=== PATIENT | female | born 2000 | race Caucasian/White ===

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

== ENCOUNTER 2019-06-30 11:03 | Day surgery (SDC) | payer BC ==
[~2019-06-30 11:03] MED LIST: Lactated Ringers 1,000 ML IV SCH
--- NOTE | 2019-06-30 11:46 | PCM.PREANE ---
Preanesthetic Assessment - Anesthesia/Transfusion/Family Hx Anesthesia History: Prior Anesthesia Without Reaction Family History of Anesthesia Reaction: No Transfusion History: No Prior Transfusion(s) Intubation History: Unknown - Review of Systems General: No Symptoms Pulmonary: No Symptoms Cardiovascular: No Symptoms Gastrointestinal: No Symptoms Neurological: No Symptoms Other: Reports: None - Physical Assessment Height: 5 ft 7 in Weight: 82.554 kg ASA Class: 2 Mental Status: Alert & Oriented x3 Airway Class: Mallampati = 1 Dentition: Reports: Normal Dentition Thyro-Mental Finger Breadths: 3 Mouth Opening Finger Breadths: 2 ROM/Head Extension: Full Lungs: Clear to Auscultation, Normal Respiratory Effort Cardiovascular: Regular Rate, Regular Rhythm - Allergies Allergies/Adverse Reactions: Allergies Allergy/AdvReac Type Severity Reaction Status Date / Time albuterol Allergy Agitation Verified 06/29/19 15:19 Penicillins Allergy Rash Verified 06/29/19 15:19 - Blood Blood Available: No - Anesthesia Plan Pre-Op Medication Ordered: None - Acknowledgements Anesthesia Type Planned: General Anesthesia Pt an Appropriate Candidate for the Planned Anesthesia: Yes Alternatives and Risks of Anesthesia Discussed w Pt/Guardian: Yes Pt/Guardian Understands and Agrees with Anesthesia Plan: Yes PreAnesthesia Questionnaire HEENT History: Reports: Other (See Below) Other HEENT History: top and bottom permanent dental retainers Cardiovascular History: Reports: None Respiratory History: Reports: None Gastrointestinal History: Reports: None Genitourinary History: Reports: None SHEET METAL INSULATOR History: Reports: Endometriosis Musculoskeletal History: Reports: Other (See Below) Other Musculoskeletal History: hx fx growth plate to elbow as a child Neurological History: Reports: Migraines Psychiatric History: Reports: None Endocrine/Metabolic History: Reports: None Hematologic History: Reports: None, Other (See Below) (h/o anemia) Immunologic History: Reports: None Oncologic (Cancer) History: Reports: None Dermatologic History: Reports: None - Infectious Disease History Infectious Disease History: Reports: Chicken Pox - Past Surgical History Head Surgeries/Procedures: Reports: None HEENT Surgical History: Reports: Tonsillectomy Cardiovascular Surgical History: Reports: None Respiratory Surgical History: Reports: None GI Surgical History: Reports: None Female Surgical History: Reports: Other (See Below) Other Female Surgeries/Procedures: laparoscopy in the past - 2014 Endocrine Surgical History: Reports: None Neurological Surgical History: Reports: None Musculoskeletal Surgical History: Reports: Other (See Below) (pinning rt. forarm fx.) Oncologic Surgical History: Reports: None Dermatological Surgical History: Reports: None - SUBSTANCE USE Smoking Status *Q: Former Smoker Tobacco Use Within Last Twelve Months: Cigarettes - HOME MEDS Home Medications: Home Meds . [No Known Home Meds] 06/29/19 [History] - CURRENT (IN HOUSE) MEDS Current Meds: Current Medications Lactated Ringer's (Ringers, Lactated) 1,000 mls @ 125 mls/hr IV ASDIRECTED RAHEEM
[2019-06-30] MEDS ORDERED: Propofol 200 MG/20 ML SDV ONE (13:16)
[2019-06-30] MEDS ORDERED: Rocuronium 100 MG/10 ML Syringe ONE (13:16)
[2019-06-30] MEDS ORDERED: Midazolam 1 MG/ML 2 ML SDV ONE (13:16)
[2019-06-30] MEDS ORDERED: Ondansetron 4 MG/2 ML SDV ONE (13:16)
[2019-06-30] MEDS ORDERED: fentaNYL 100 MCG/2 ML SDV ONE ×2 (13:16→14:10)
[2019-06-30] MEDS ORDERED: Lidocaine 2% 5 ML SDV ONE (13:16)
[2019-06-30] MEDS ORDERED: Methylene Blue 50 MG/10 ML Ampule ONE (13:21)
[2019-06-30] MEDS ORDERED: Bupivacaine 0.25% 10 ML SDV ONE (13:21)
[2019-06-30] MEDS ORDERED: Ketorolac 30 MG/ML SDV ONE (14:55)
[2019-06-30] MEDS ORDERED: Sugammadex Sodium 200 MG/2 ML VIAL ONE (15:00)
--- NOTE | 2019-06-30 15:16 | PCM.OPNOTE ---
- General Post-Op/Procedure Note Date of Surgery/Procedure: 06/30/19 Operative Procedure(s): operative laparoscopy, ablation of endometriosis, lysis of adhesions and chormopertubation Findings: dense and filmy adhesions of the left tube to the sigmoid colon. lateral to the left uterosacral ligament, there are two kirti-master's windows, inflammatory blegs and dark implants in posterior cul de sac, and along the right uterosacral ligament, small dark implants on ovaries. Bilateral tubes open. Pre Op Diagnosis: pelvic pain, endometriosis. Post-Op Diagnosis: Same Anesthesia Technique: General ET Tube Primary Surgeon: Brooke Chino Anesthesia Provider: Yue Zuniga Billet Shearer: Barrera Coronado Pathology: none Fluid Replacement, Intraop: 1,000 EBL in mLs: 20 Complications: None Known Condition: Good Free Text/Narrative:: Intake & Output 06/30/19 06/30/19 06/30/19 06:59 14:59 22:59 Output Total 100 Balance -100
[2019-06-30] MEDS: fentaNYL 100 MCG/2 ML SDV IVPUSH PRN ×4 (15:17→15:49)
[2019-06-30] MEDS ORDERED: HYDROmorphone 2 MG/ML Syringe IVPUSH ONE (15:21)
--- NOTE | 2019-06-30 16:04 | PCM.POSTAN ---
POST ANESTHESIA ASSESSMENT - MENTAL STATUS Mental Status: Alert, Oriented - VITAL SIGNS Vital Signs: Last Vital Signs Temp 36.7 C 06/30/19 15:13 Pulse 106 H 06/30/19 15:56 Resp 12 06/30/19 15:56 BP 116/96 H 06/30/19 15:56 Pulse Ox 94 L 06/30/19 15:56 - RESPIRATORY Respiratory Status: Respiratory Rate WNL, Airway Patent, O2 Saturation Stable - CARDIOVASCULAR CV Status: Pulse Rate WNL, Blood Pressure Stable - GASTROINTESTINAL GI Status: No Symptoms - PAIN Pain Score: 3 - POST OP HYDRATION Hydration Status: Adequate & Stable - OBSERVATIONS Free Text/Narrative:: no anesthesia problems
--- NOTE | 2019-06-30 16:31 | PCM48HPAN ---
Post Anesthesia Note - EVALUATION WITHIN 48HRS OF ANESTHETIC Vital Signs in Normal Range: Yes Patient Participated in Evaluation: Yes Respiratory Function Stable: Yes Airway Patent: Yes Cardiovascular Function Stable: Yes Hydration Status Stable: Yes Pain Control Satisfactory: Yes Nausea and Vomiting Control Satisfactory: Yes Mental Status Recovered: Yes Vital Signs: Last Vital Signs Temp 36.8 C 06/30/19 16:00 Pulse 93 06/30/19 16:15 Resp 15 06/30/19 16:15 BP 118/59 L 06/30/19 16:15 Pulse Ox 93 L 06/30/19 16:15 - COMMENTS/OBSERVATIONS Free Text/Narrative:: no anesthesia problems
--- NOTE | 2019-06-30 17:06 | OR ---
SURGEON: Brooke Chino M.D. DATE OF PROCEDURE: 06/30/2019 PREOPERATIVE DIAGNOSES: Endometriosis, pelvic pain. POSTOPERATIVE DIAGNOSES: Endometriosis, pelvic pain, pelvic adhesions. PROCEDURES: Operative laparoscopy, lysis of adhesions, ablation of endometriosis, chromopertubation. PRIMARY SURGEON: Brooke Chino MD. ANESTHESIA: General endotracheal. FLUIDS: 1000 mL of crystalloid. ESTIMATED BLOOD LOSS: 20 mL. FINDINGS: Normal-appearing uterus. The endometriosis appears to have advanced to a stage II to III with the left tube being ill-defined due to dense and filmy adhesions between the tube and the sigmoid colon and the pelvic sidewall. There are two Salom[place]-Masters windows lateral to the uterosacral ligament on the left, inflammatory blebs along the right uterosacral ligament, multiple endometriotic dark implants and inflammatory implants in the posterior cul-de-sac, adhesion between the right tube and pelvic sidewall, and small dark implants on the ovaries. COMPLICATIONS: None known. DISPOSITION: Stable to Recovery. BRIEF HISTORY: This is a 18-year-old female with a known history of endometriosis since age 13, diagnosed by biopsy at a laparoscopy. She has used Lupron, Depo-Provera, and hormonal suppression as well as nonsteroidals for treatment of her endometriosis, and she is having worsening pain, irregular bleeding, and presents for evaluation of endometriosis and with treatment as it has been 5 years since her last laparoscopy. In the future, she does desire fertility and would like an assessment of tubes at this time as well with chromopertubation. Risks of surgery were discussed including bleeding; infection; injury to bowel, bladder, blood vessels, ureters, or other organs; risk of thromboembolic event; and risk of anesthesia. Understanding all these risks, she does desire to proceed. DESCRIPTION OF PROCEDURE: With the patient in dorsal lithotomy position, under adequate general endotracheal anesthesia, the abdomen was prepped with chlorhexidine. The perineum and vagina were prepped with Betadine and draped in the usual fashion for vaginal surgery. The bladder was drained with a red Roebrtson catheter. SCDs were in place. An appropriate time-out was held. After the patient was appropriately draped, a bimanual examination was performed. The uterus was mobile, 8-week size. A speculum was placed in the vagina. The cervix was dilated to a 6 mm Hegar dilator. The ZUMI uterine manipulator was placed into the uterus. Preparation Plant Repairer's gloves were changed. Attention was then turned to the abdomen where a 5 mm vertical incision was made within the umbilicus. The anterior abdominal wall was elevated. Veress needle was inserted. Opening pressure was 4 mmHg. CO2 was insufflated to develop an adequate pneumoperitoneum of 13 mmHg. A 5 mm port was placed at the umbilicus. The camera was placed. The laparoscope was placed into the abdominal cavity. There was no evidence of any trauma from the port placement site. The pelvis was carefully inspected. The patient was placed in Trendelenburg positions. Two additional ports were placed, 2 cm medial and cephalad from the anterior superior iliac spine on the right and the left. Findings were as noted above. The left tube was noted to be densely adherent. Spreading the Harmonic Kunal tip, I was able to separate the dense adhesions into filmy adhesions that I was then able to lyse to release the fimbria of the left tube and also I used the Harmonic Kunal to release the left ovary from the pelvic sidewall. The Salomón- Masters window lateral to the left uterosacral ligament was near the ureter and therefore no intervention was performed. The uterosacral ligaments contained multiple inflammatory blebs and implants of endometriosis. These were treated with the ball tip of the Harmonic Kunal at a setting of 5. Also several implants in the posterior cul-de-sac were treated as well as on the posterior uterus. The implants on the two ovaries were also treated with the ball tip of the Harmonic. This being completed and additional adhesion being lysed between the right ovary and the pelvic sidewall, chromopertubation was performed with flow noted from bilateral tubes. This being completed, the pelvis was inspected and was hemostatic. The abdomen was desufflated and inspected under low pressure. After the abdomen was adequately desufflated, the ports were removed and the skin was closed with subcuticular suture of 4-0 Monocryl. The ZUMI uterine manipulator was removed from the vagina. Final sponge, needle, and instrument counts were reported as correct. There were no known complications. The patient was transferred to Recovery in good condition. KENYA / RAFAEL /[id number]
[2019-06-30 17:35] VITALS: BP 118/60; PULSE 87
== END 2019-06-30 17:15 | disposition home or self-care (01) ==
LOC: MW.SDS 11:03
PROVIDERS: ATTEND Obstetrics & Gynecology
DX: N80.3 Endometriosis of pelvic peritoneum (principal); N80.1 Endometriosis of ovary; N80.2 Endometriosis of fallopian tube; N73.6 Female pelvic peritoneal adhesions (postinfective); Z31.41 Encounter for fertility testing; G43.909 Migraine, unspecified, not intractable, without status migrainosus; Z87.891 Personal history of nicotine dependence; Z88.0 Allergy status to penicillin; Z88.8 Allergy status to other drugs, medicaments and biological substances
CPT/HCPCS: 36415; 58350; 58662; 84703; 85027; J1170; J1885; J2001; J2250; J2405; J2704; J3010; J3490; J7120; 00840

== ENCOUNTER 2020-10-12 16:07 | Inpatient (IN) | payer BC ==
[2020-10-12] MEDS ORDERED: Sodium Chloride 0.9% 10 ML Syringe FLUSH PRN (19:14)
[2020-10-12] MEDS ORDERED: Carboprost Tromethamine 250 MCG/1 ML Amp IM PRN (19:14)
[2020-10-12] MEDS ORDERED: Misoprostol 200 MCG Tab PO PRN (19:14)
[2020-10-12] MEDS ORDERED: Tranexamic Acid 1,000 MG in Sodium Chloride 0.9% 100 ML IV PRN (19:14)
[2020-10-12] MEDS ORDERED: Methylergonovine 0.2 MG/1 ML Amp IM PRN (19:14)
[2020-10-12] MEDS ORDERED: Sodium Chloride 0.9% 2.5 ML Syringe FLUSH PRN (19:14)
[2020-10-12] MEDS ORDERED: Lidocaine 1% 50 ML MDV INJECT PRN (19:14)
[2020-10-12] MEDS ORDERED: Nalbuphine 10 MG/1 ML Vial IVPUSH PRN (19:14)
[2020-10-12] MEDS ORDERED: Sodium Chloride 0.9% 10 ML SDV IV PRN (19:14)
[2020-10-12] MEDS ORDERED: Butorphanol 1 MG/ML SDV IVPUSH PRN (19:14)
[2020-10-12] MEDS ORDERED: Water For Irrigation,Sterile 1,000 ML Container IRR PRN (19:14)
[2020-10-12] MEDS ORDERED: Oxytocin/0.9 % Sodium Chloride 30 UNIT/500 ML BAG IV SCH ×2 (19:15→19:30)
[2020-10-12] MEDS ORDERED: Terbutaline 1 MG/ML SDV SUBCUT PRN (19:16)
[2020-10-12] MEDS ORDERED: Misoprostol 25 MCG (1/4 of 100 MCG) Tab VAG PRN (19:16)
[2020-10-12] MEDS: Lactated Ringers 1,000 ML IV SCH (20:29)
[2020-10-12] MEDS: Misoprostol 25 MCG (1/4 of 100 MCG) Tab VAG PRN (20:35)
[2020-10-12] MEDS ORDERED: Oxytocin/0.9 % Sodium Chloride 30 UNIT/500 ML BAG ONE (23:52)
[2020-10-13] MEDS ORDERED: Omeprazole 20 MG Cap.CR PO ONE (00:15)
[2020-10-13] MEDS: Misoprostol 25 MCG (1/4 of 100 MCG) Tab VAG PRN (00:40)
[2020-10-13] MEDS ORDERED: Ondansetron 4 MG/2 ML SDV IVPUSH PRN (02:00)
[2020-10-13] MEDS ORDERED: fentaNYL 100 MCG/2 ML SDV ONE (05:09)
[2020-10-13] MEDS ORDERED: Ropivacaine HCl/PF 100 ML ONE ×2 (05:09→13:01)
[2020-10-13] MEDS: Lactated Ringers 1,000 ML IV SCH ×2 (05:43→09:30)
--- NOTE | 2020-10-13 05:49 | PCM.PREANE ---
Preanesthetic Assessment - Anesthesia/Transfusion/Family Hx Anesthesia History: Prior Anesthesia Without Reaction Family History of Anesthesia Reaction: No Transfusion History: No Prior Transfusion(s) Intubation History: Unknown - Physical Assessment NPO Status Date: 10/13/20 NPO Status Time: 00:05 Height: 1.7 m Weight: 92.533 kg ASA Class: 2 - Lab Values: Laboratory Last Values WBC 13.07 K/uL (4.0-11.0) H 10/12/20 19:53 RBC 4.28 M/uL (4.30-5.90) L 10/12/20 19:53 Hgb 12.6 g/dL (12.0-16.0) 10/12/20 19:53 Hct 38.8 % (36.0-46.0) 10/12/20 19:53 MCV 90.7 fL (80.0-98.0) 10/12/20 19:53 MCH 29.4 pg (27.0-32.0) 10/12/20 19:53 MCHC 32.5 g/dL (31.0-37.0) 10/12/20 19:53 RDW Std Deviation 45.8 fl (28.0-62.0) 10/12/20 19:53 RDW Coeff of Amelia 14 % (11.0-15.0) 10/12/20 19:53 Plt Count 301 K/uL (150-400) 10/12/20 19:53 MPV 10.90 fL (7.40-12.00) 10/12/20 19:53 Nucleated RBC % 0.0 /100WBC 10/12/20 19:53 Nucleated RBCs # 0 K/uL 10/12/20 19:53 SARS-CoV-2 RNA ([place]) NEGATIVE (NEGATIVE) 10/12/20 19:55 Blood Type O POSITIVE 10/12/20 19:56 Antibody Screen NEGATIVE 10/12/20 19:56 - Allergies Allergies/Adverse Reactions: Allergies Allergy/AdvReac Type Severity Reaction Status Date / Time albuterol Allergy Agitation Verified 10/12/20 16:28 Penicillins Allergy Rash Verified 10/12/20 16:28 - Acknowledgements Anesthesia Type Planned: Epidural Pt an Appropriate Candidate for the Planned Anesthesia: Yes Alternatives and Risks of Anesthesia Discussed w Pt/Guardian: Yes Pt/Guardian Understands and Agrees with Anesthesia Plan: Yes PreAnesthesia Questionnaire HEENT History: Reports: Other (See Below) Other HEENT History: top and bottom permanent dental retainers Cardiovascular History: Reports: None Respiratory History: Reports: None Gastrointestinal History: Reports: None Genitourinary History: Reports: None [employer] History: Reports: Endometriosis Musculoskeletal History: Reports: Other (See Below) Other Musculoskeletal History: hx fx growth plate to elbow as a child Neurological History: Reports: Migraines Psychiatric History: Reports: None Endocrine/Metabolic History: Reports: None Hematologic History: Reports: None, Other (See Below) Immunologic History: Reports: None Oncologic (Cancer) History: Reports: None Dermatologic History: Reports: None - Infectious Disease History Infectious Disease History: Reports: Chicken Pox - Past Surgical History Head Surgeries/Procedures: Reports: None HEENT Surgical History: Reports: Tonsillectomy Cardiovascular Surgical History: Reports: None Respiratory Surgical History: Reports: None GI Surgical History: Reports: None Female Surgical History: Reports: Other (See Below) Other Female Surgeries/Procedures: laparoscopy in the past - 2014 Endocrine Surgical History: Reports: None Neurological Surgical History: Reports: None Musculoskeletal Surgical History: Reports: Other (See Below) Oncologic Surgical History: Reports: None Dermatological Surgical History: Reports: None - SUBSTANCE USE Tobacco Use Status *Q: Never Tobacco User Second Hand Smoke Exposure: No Recreational Drug Use History: No - HOME MEDS Home Medications: Home Meds Acetaminophen [Tylenol Extra Strength] 1 - 2 tab PO ASDIRECTED PRN 10/12/20 [History] Ferrous Sulfate 1 tab PO BEDTIME 10/12/20 [History] Pnv No.95/Ferrous Fum/Folic AC [ Tablet] 1 tab PO DAILY 10/12/20 [History] - CURRENT (IN HOUSE) MEDS Current Meds: Current Medications Butorphanol Tartrate (Butorphanol 1 Mg/Ml Sdv) 1 mg IVPUSH Q1H PRN PRN Reason: Pain Carboprost Tromethamine (Carboprost Tromethamine 250 Mcg/1 Ml Amp) 250 mcg IM ASDIRECTED PRN PRN Reason: Post Hemorrhage Lactated Ringer's (Ringers, Lactated) 1,000 mls @ 150 mls/hr IV ASDIRECTED RAHEEM Last Admin: 10/13/20 05:43 Dose: 999 mls/hr Documented by: Oxytocin/Sodium Chloride (Oxytocin 30 Unit/500 Ml-Ns) 30 unit in 500 mls @ 500 mls/hr IV TITRATE RAHEEM Tranexamic Acid 1,000 mg/ (Sodium Chloride) 110 mls @ 660 mls/hr IV ONETIME PRN PRN Reason: Bleeding Oxytocin/Sodium Chloride (Oxytocin 30 Unit/500 Ml-Ns) 30 unit in 500 mls @ 2 mls/hr IV TITRATE RAHEEM; Protocol Lidocaine HCl (Lidocaine 1% 50 Ml Mdv) 50 ml INJECT ONETIME PRN PRN Reason: Laceration repair Methylergonovine Maleate (Methylergonovine 0.2 Mg/1 Ml Amp) 0.2 mg IM ASDIRECTED PRN PRN Reason: Post Hemorrhage Misoprostol (Misoprostol 200 Mcg Tab) 200 mcg PO ONETIME PRN PRN Reason: Post Hemorrhage Misoprostol (Misoprostol 25 Mcg (1/4 Of 100 Mcg) Tab) 25 mcg VAG ONETIME PRN PRN Reason: Cervical Ripening Misoprostol (Misoprostol 25 Mcg (1/4 Of 100 Mcg) Tab) 25 mcg VAG Q4H PRN PRN Reason: Cervical Ripening Last Admin: 10/13/20 00:40 Dose: 25 mcg Documented by: Nalbuphine HCl (Nalbuphine 10 Mg/1 Ml Vial) 10 mg IVPUSH Q1H PRN PRN Reason: Pain (severe 7-10) Ondansetron HCl (Ondansetron 4 Mg/2 Ml Sdv) 4 mg IVPUSH Q6H PRN PRN Reason: Nausea/Vomiting Last Admin: 10/13/20 01:58 Dose: 4 mg Documented by: Sodium Chloride (Sodium Chloride 0.9% 10 Ml Syringe) 10 ml FLUSH ASDIRECTED PRN PRN Reason: Keep Vein Open Sodium Chloride (Sodium Chloride 0.9% 2.5 Ml Syringe) 2.5 ml FLUSH ASDIRECTED PRN PRN Reason: Keep Vein Open Sodium Chloride (Sodium Chloride 0.9% 10 Ml Sdv) 10 ml IV ASDIRECTED PRN PRN Reason: IV Use Sterile Water (Water For Irrigation,Sterile 1,000 Ml Container) 1,000 ml IRR ASDIRECTED PRN PRN Reason: delivery Terbutaline Sulfate (Terbutaline 1 Mg/Ml Sdv) 0.25 mg SUBCUT ASDIRECTED PRN PRN Reason: Tacysystole Discontinued Medications Fentanyl (Fentanyl 100 Mcg/2 Ml Sdv) Confirm Administered Dose 100 mcg .ROUTE .STK-MED ONE Stop: 10/13/20 05:10 Oxytocin/Sodium Chloride (Oxytocin 30 Unit/500 Ml-Ns) Confirm Administered Dose 30 unit in 500 mls @ as directed .ROUTE .STK-MED ONE Stop: 10/12/20 23:53 Ropivacaine (Naropin 0.2%) Confirm Administered Dose 100 mls @ as directed .ROUTE .[employer]-MED ONE Stop: 10/13/20 05:10 Omeprazole (Omeprazole 20 Mg Cap.Cr) 40 mg PO ONETIME ONE Stop: 10/13/20 00:16 Last Admin: 10/13/20 00:38 Dose: 40 mg Documented by:
[2020-10-13] MEDS ORDERED: ePHEDrine 50 MG/ML SDV IVPUSH PRN (05:52)
[2020-10-13] MEDS ORDERED: Phenylephrine/Normal Saline 100 MCG/ML 10 ML Syringe IVPUSH PRN (05:52)
--- NOTE | 2020-10-13 05:52 | PCM.PRNOTE ---
- Free Text/Narrative Note: Anes Note Patietn requests epidural for L&D. Sitting position Level L3-L4 midline appraoch. Sterile technique. Chloraprep scrub to lumbar area. Sterile fenestrated draep applied. Epidural space achieved using ELIGIO technique. ELIGIO at 3 cm. Cath threaded 5 cm with ease. Cath secured a t skin using steile clear adhesive dressing. Test 0542 3 cc 1.5% lido with epi negative. 0545 Load 10 cc 0.2% ropivicaine with 1 mcg cc fentnayl in slow divided doses. 0549 Pump started wtih 90 cc same solution. Rate is 8 cc hr with 6 cc q 20 min prn bolus. Faith well. Time with patient [id number] [place] [employer]
[2020-10-13] MEDS ORDERED: Citric Acid/Sodium Citrate Solution 30 ML Cup PO ONE (09:46)
[2020-10-13] MEDS ORDERED: Acetaminophen 500 MG Tab PO PRN ×2 (16:07)
[2020-10-13] MEDS ORDERED: Ibuprofen 400 MG Tab PO PRN (16:07)
[2020-10-13] MEDS ORDERED: Witch Hazel Medicated Pads 40/Jar TOP PRN (16:07)
[2020-10-13] MEDS ORDERED: Docusate Sodium 100 MG Cap PO PRN (16:07)
[2020-10-13] MEDS ORDERED: Bisacodyl 10 MG Supp RECTAL PRN (16:07)
[2020-10-13] MEDS ORDERED: Lanolin 100% Cream 7 GM Tube TOP PRN (16:07)
[2020-10-13] MEDS ORDERED: Benzocaine/Menthol 20%-0.5% Spray 78 GM Cannister TOP PRN (16:07)
[2020-10-13] MEDS ORDERED: oxyCODONE 5 MG Tab PO PRN (16:07)
--- NOTE | 2020-10-13 16:14 | PCM.OPNOTE ---
- General Post-Op/Procedure Note Date of Surgery/Procedure: 10/13/20 Operative Procedure(s): Spontaneous vaginal delivery Findings: Normal appearing male in cephalic presentation. Amniotic fluid with light meconium staining. Nuchal chord x1, delivered through. APGARs 8/9. Weight 4190 grams. Second degree perineal laceration. EBL 300cc. Pre Op Diagnosis: 1. 39w1d pop gestation. 2. Preeclampsia without severe features Post-Op Diagnosis: 1. 39w1d pop gestation. 2. Preeclampsia without severe features Anesthesia Technique: Epidural Primary Surgeon: Lee Ann Goldman Pathology: Placenta EBL in mLs: 300 Complications: None known Condition: Good Free Text/Narrative:: Dictation #[id number]
[2020-10-13] MEDS: Ibuprofen 800 MG Tab PO PRN (17:55)
--- NOTE | 2020-10-14 02:33 | OR ---
SURGEON: MAIN MCHUGH MD DATE OF PROCEDURE: 10/13/2020 PREOPERATIVE DIAGNOSES: 1. A 39-week 1-day pop gestation. 2. Preeclampsia without severe features. POSTOPERATIVE DIAGNOSES: 1. A 39-week 1-day pop gestation. 2. Preeclampsia without severe features. PROCEDURES PERFORMED: Normal spontaneous vaginal delivery. Repair of second-degree laceration. PRIMARY SURGEON: Main Mchugh MD ANESTHESIOLOGIST: Tree Velázquez MD FINDINGS: Normal-appearing male infant, cephalic presentation. Amniotic fluid with light meconium staining. Nuchal cord x1, delivered through. scores 8 and 9. Weight 4190 g. Second-degree perineal laceration. ESTIMATED BLOOD LOSS: 300 mL. INDICATION FOR PROCEDURE: A 19-year-old 1, para 0, at 39 weeks and 1 day gestation, was admitted to Labor and delivery on 10/12/2020 due to diagnosis of preeclampsia without severe features. She received vaginal Cytotec throughout the evening hours for cervical ripening. The morning of 10/13/2020, cervix was noted to be 5 cm, 100% effaced, and -2 station. An IUPC was then placed at that time to assess contractility. The patient received epidural for pain management with good relief. The labor progressed spontaneously, and Pitocin was not indicated. At approximately 1500, I presented to the patient's room and performed a cervical exam. The patient noted to be 10 cm dilated, 100% effaced, and at +2 station with a desire to push. DESCRIPTION OF PROCEDURE: The patient was placed into the modified dorsal lithotomy position and she pushed with contractions for approximately 30 minutes with good descent. head delivered in occiput anterior position restituted LOT. A tight nuchal cord x1 was noted and head delivered through. Anterior shoulder delivered easily. Posterior shoulder and remaining body were then delivered. The baby was placed on maternal chest and evaluated by the nursing staff. The baby was pink, crying vigorously, and moving all extremities immediately after the delivery. After approximately 60 seconds, the umbilical cord was clamped and cut. Arterial, venous, and cord blood gases were then obtained. The placenta was then expressed intact, and a 3-vessel cord was noted. Inspection of the cervix, vaginal guthrie, and perineum revealed a second-degree perineal laceration. This was repaired in the normal fashion with 2-0 Vicryl. Hemostasis was confirmed. Fundal massage was performed, and the patient's bleeding was light. She tolerated the procedure well and was given care instructions. OKSANA HALL /[id number]
[2020-10-14] MEDS: Ibuprofen 800 MG Tab PO PRN ×2 (03:30→16:11)
--- NOTE | 2020-10-14 07:56 | PCM48HPAN ---
Post Anesthesia Note - EVALUATION WITHIN 48HRS OF ANESTHETIC Vital Signs in Normal Range: Yes Patient Participated in Evaluation: Yes Respiratory Function Stable: Yes Airway Patent: Yes Cardiovascular Function Stable: Yes Hydration Status Stable: Yes Pain Control Satisfactory: Yes Nausea and Vomiting Control Satisfactory: Yes Mental Status Recovered: Yes
--- NOTE | 2020-10-14 14:00 | PCM.PNPP ---
- General Info Date of Service: 10/14/20 Functional Status: Reports: Pain Controlled, Tolerating Diet, Ambulating, Urinating - Review of Systems General: Reports: No Symptoms HEENT: Reports: No Symptoms Pulmonary: Reports: No Symptoms Cardiovascular: Reports: No Symptoms Gastrointestinal: Reports: No Symptoms Genitourinary: Reports: No Symptoms Musculoskeletal: Reports: No Symptoms Skin: Reports: No Symptoms Neurological: Reports: No Symptoms Psychiatric: Reports: No Symptoms - Patient Data Vital Signs - Most Recent: Last Vital Signs Temp 36.2 C 10/14/20 08:20 Pulse 98 10/14/20 08:20 Resp 18 10/14/20 08:20 BP 126/88 10/14/20 08:20 Pulse Ox 100 10/14/20 08:20 Weight - Most Recent: 92.533 kg Lab Results - Last 24 Hours: Laboratory Results - last 24 hr 10/14/20 Range/Units 04:50 Hgb 9.9 L (12.0-16.0) g/dL Hct 29.7 L (36.0-46.0) % Med Orders - Current: Current Medications Acetaminophen (Acetaminophen 500 Mg Tab) 500 mg PO Q4H PRN PRN Reason: Pain Acetaminophen (Acetaminophen 500 Mg Tab) 1,000 mg PO Q4H PRN PRN Reason: Pain Benzocaine/Menthol (Benzocaine/Menthol 20%-0.5% [place] 78 Gm Cannister) 78 gm TOP ASDIRECTED PRN PRN Reason: Perineal Comfort Measure Last Admin: 10/13/20 17:55 Dose: 1 canister Documented by: Bisacodyl (Bisacodyl 10 Mg Supp) 10 mg RECTAL ONETIME PRN PRN Reason: Constipation Butorphanol Tartrate (Butorphanol 1 Mg/Ml Sdv) 1 mg IVPUSH Q1H PRN PRN Reason: Pain Carboprost Tromethamine (Carboprost Tromethamine 250 Mcg/1 Ml Amp) 250 mcg IM ASDIRECTED PRN PRN Reason: Post Hemorrhage Docusate Sodium (Docusate Sodium 100 Mg Cap) 100 mg PO BID PRN PRN Reason: Constipation Emollient Ointment (Lanolin 100% Cream 7 Gm Tube) 0 gm TOP ASDIRECTED PRN PRN Reason: Sore Nipples Ephedrine Sulfate (Ephedrine 50 Mg/Ml Sdv) 10 mg IVPUSH Q5M PRN PRN Reason: Hypotension Lactated Ringer's (Ringers, Lactated) 1,000 mls @ 150 mls/hr IV ASDIRECTED RAHEEM Last Admin: 10/13/20 09:30 Dose: 150 mls/hr Documented by: Oxytocin/Sodium Chloride (Oxytocin 30 Unit/500 Ml-Ns) 30 unit in 500 mls @ 500 mls/hr IV TITRATE RAHEEM Last Infusion: 10/13/20 15:54 Dose: 500 mls/hr Documented by: Tranexamic Acid 1,000 mg/ (Sodium Chloride) 110 mls @ 660 mls/hr IV ONETIME PRN PRN Reason: Bleeding Oxytocin/Sodium Chloride (Oxytocin 30 Unit/500 Ml-Ns) 30 unit in 500 mls @ 2 mls/hr IV TITRATE [facility]; Protocol Ibuprofen (Ibuprofen 400 Mg Tab) 400 mg PO Q4H PRN PRN Reason: Pain Ibuprofen (Ibuprofen 800 Mg Tab) 800 mg PO Q6H PRN PRN Reason: Pain Last Admin: 10/14/20 03:30 Dose: 800 mg Documented by: Lidocaine HCl (Lidocaine 1% 50 Ml Mdv) 50 ml INJECT ONETIME PRN PRN Reason: Laceration repair Methylergonovine Maleate (Methylergonovine 0.2 Mg/1 Ml Amp) 0.2 mg IM ASDIRECTED PRN PRN Reason: Post Hemorrhage Misoprostol (Misoprostol 200 Mcg Tab) 200 mcg PO ONETIME PRN PRN Reason: Post Hemorrhage Misoprostol (Misoprostol 25 Mcg (1/4 Of 100 Mcg) Tab) 25 mcg VAG ONETIME PRN PRN Reason: Cervical Ripening Misoprostol (Misoprostol 25 Mcg (1/4 Of 100 Mcg) Tab) 25 mcg VAG Q4H PRN PRN Reason: Cervical Ripening Last Admin: 10/13/20 00:40 Dose: 25 mcg Documented by: Nalbuphine HCl (Nalbuphine 10 Mg/1 Ml Vial) 10 mg IVPUSH Q1H PRN PRN Reason: Pain (severe 7-10) Ondansetron HCl (Ondansetron 4 Mg/2 Ml Sdv) 4 mg IVPUSH Q6H PRN PRN Reason: Nausea/Vomiting Last Admin: 10/13/20 01:58 Dose: 4 mg Documented by: Oxycodone HCl (Oxycodone 5 Mg Tab) 5 mg PO Q2H PRN PRN Reason: Pain Phenylephrine HCl (Phenylephrine/Normal Saline 100 Mcg/Ml 10 Ml Syringe) 0.1 mg IVPUSH Q5M PRN PRN Reason: Hypotension Sodium Chloride (Sodium Chloride 0.9% 10 Ml Syringe) 10 ml FLUSH ASDIRECTED PRN PRN Reason: Keep Vein Open Sodium Chloride (Sodium Chloride 0.9% 2.5 Ml Syringe) 2.5 ml FLUSH ASDIRECTED PRN PRN Reason: Keep Vein Open Sodium Chloride (Sodium Chloride 0.9% 10 Ml Sdv) 10 ml IV ASDIRECTED PRN PRN Reason: IV Use Sterile Water (Water For Irrigation,Sterile 1,000 Ml Container) 1,000 ml IRR ASDIRECTED PRN PRN Reason: delivery Terbutaline Sulfate (Terbutaline 1 Mg/Ml Sdv) 0.25 mg SUBCUT ASDIRECTED PRN PRN Reason: Tacysystole [place] ([place]itch [place] Medicated Pads 40/Jar) 1 pad TOP ASDIRECTED PRN PRN Reason: comfort care Last Admin: 10/13/20 17:55 Dose: 1 container Documented by: Discontinued Medications Citric Acid/Sodium Citrate (Citric Acid/Sodium Citrate Solution 30 Ml Cup) 30 ml PO ONETIME ONE Stop: 10/13/20 09:47 Last Admin: 10/13/20 11:30 Dose: 30 ml Documented by: Fentanyl (Fentanyl 100 Mcg/2 Ml Sdv) Confirm Administered Dose 100 mcg .ROUTE .STK-MED ONE Stop: 10/13/20 05:10 Oxytocin/Sodium Chloride (Oxytocin 30 Unit/500 Ml-Ns) Confirm Administered Dose 30 unit in 500 mls @ as directed .ROUTE .STK-MED ONE Stop: 10/12/20 23:53 Ropivacaine (Naropin 0.2%) Confirm Administered Dose 100 mls @ as directed .ROUTE .STK-MED ONE Stop: 10/13/20 05:10 Ropivacaine (Naropin 0.2%) Confirm Administered Dose 100 mls @ as directed .ROUTE .STK-MED ONE Stop: 10/13/20 13:02 Omeprazole (Omeprazole 20 Mg Cap.Cr) 40 mg PO ONETIME ONE Stop: 10/13/20 00:16 Last Admin: 10/13/20 00:38 Dose: 40 mg Documented by: - Interaction Infant Disposition, : in Room with Family Feeding: Attempted ; Nursed Fair/Poor Support Person: - Recovery Exam Fundal Tone: Firm Fundal Level: At Umbilicus Fundal Placement: Midline Lochia Amount: Scant Lochia Color: Rubra/Red Urinary Elimination: Voided - Exam General: Alert, Oriented Neck: Supple Lungs: Clear to Auscultation, Normal Respiratory Effort Cardiovascular: Regular Rate, Regular Rhythm GI/Abdominal Exam: Soft, Non-Tender Extremities: Normal Range of Motion, No Pedal Edema Skin: Warm, Dry, Intact Neurological: No New Focal Deficit Psy/Mental Status: Alert, Normal Affect, Normal Mood - Problem List Review Problem List Initiated/Reviewed/Updated: Yes - Assessment Assessment:: PPD#1 after , struggling with , minimal lochia, minimal pain - Plan Plan:: Continue care anticipate home tomorrow.
[2020-10-15] MEDS: Ibuprofen 800 MG Tab PO PRN (03:55)
[2020-10-15 08:19] VITALS: BP 121/82; PULSE 90
--- NOTE | 2020-10-15 10:10 | PCM.PNPP ---
- General Info Date of Service: 10/15/20 Functional Status: Reports: Pain Controlled, Tolerating Diet, Ambulating, Urinating - Review of Systems General: Denies: Fever, Weakness, Fatigue Pulmonary: Denies: Shortness of Breath Cardiovascular: Denies: Chest Pain, Palpitations, Lightheadedness Gastrointestinal: Denies: Abdominal Pain, Nausea, Vomiting Genitourinary: Denies: Flank Pain Skin: Reports: No Symptoms Neurological: Reports: No Symptoms Psychiatric: Reports: No Symptoms - General Info Date of Service: 10/15/20 - Patient Data Vital Signs - Most Recent: Last Vital Signs Temp 36.5 C 10/15/20 08:19 Pulse 90 10/15/20 08:19 Resp 18 10/15/20 08:19 BP 121/82 10/15/20 08:19 Pulse Ox 95 10/15/20 08:19 Weight - Most Recent: 92.533 kg Lab Results - Last 24 Hours: Laboratory Results - last 24 hr 10/12/20 Range/Units 19:53 RPR Non-Reac (Non-Reac) Med Orders - Current: Current Medications Acetaminophen (Acetaminophen 500 Mg Tab) 500 mg PO Q4H PRN PRN Reason: Pain Acetaminophen (Acetaminophen 500 Mg Tab) 1,000 mg PO Q4H PRN PRN Reason: Pain Last Admin: 10/14/20 21:33 Dose: 1,000 mg Documented by: Benzocaine/Menthol (Benzocaine/Menthol 20%-0.5% [place] 78 Gm Cannister) 78 gm TOP ASDIRECTED PRN PRN Reason: Perineal Comfort Measure Last Admin: 10/13/20 17:55 Dose: 1 canister Documented by: Bisacodyl (Bisacodyl 10 Mg Supp) 10 mg RECTAL ONETIME PRN PRN Reason: Constipation Butorphanol Tartrate (Butorphanol 1 Mg/Ml Sdv) 1 mg IVPUSH Q1H PRN PRN Reason: Pain Carboprost Tromethamine (Carboprost Tromethamine 250 Mcg/1 Ml Amp) 250 mcg IM ASDIRECTED PRN PRN Reason: Post Hemorrhage Docusate Sodium (Docusate Sodium 100 Mg Cap) 100 mg PO BID PRN PRN Reason: Constipation Last Admin: 10/14/20 21:34 Dose: 100 mg Documented by: Emollient Ointment (Lanolin 100% Cream 7 Gm Tube) 0 gm TOP ASDIRECTED PRN PRN Reason: Sore Nipples Last Admin: 10/14/20 21:35 Dose: 7 gm Documented by: Ephedrine Sulfate (Ephedrine 50 Mg/Ml Sdv) 10 mg IVPUSH Q5M PRN PRN Reason: Hypotension Lactated Ringer's (Ringers, Lactated) 1,000 mls @ 150 mls/hr IV ASDIRECTED RAHEEM Last Admin: 10/13/20 09:30 Dose: 150 mls/hr Documented by: Oxytocin/Sodium Chloride (Oxytocin 30 Unit/500 Ml-Ns) 30 unit in 500 mls @ 500 mls/hr IV TITRATE [facility] Last Infusion: 10/13/20 15:54 Dose: 500 mls/hr Documented by: Tranexamic Acid 1,000 mg/ (Sodium Chloride) 110 mls @ 660 mls/hr IV ONETIME PRN PRN Reason: Bleeding Oxytocin/Sodium Chloride (Oxytocin 30 Unit/500 Ml-Ns) 30 unit in 500 mls @ 2 ml s/hr IV TITRATE [facility]; Protocol Ibuprofen (Ibuprofen 400 Mg Tab) 400 mg PO Q4H PRN PRN Reason: Pain Ibuprofen (Ibuprofen 800 Mg Tab) 800 mg PO Q6H PRN PRN Reason: Pain Last Admin: 10/15/20 03:55 Dose: 800 mg Documented by: Lidocaine HCl (Lidocaine 1% 50 Ml Mdv) 50 ml INJECT ONETIME PRN PRN Reason: Laceration repair Methylergonovine Maleate (Methylergonovine 0.2 Mg/1 Ml Amp) 0.2 mg IM ASDI RECTED PRN PRN Reason: Post Hemorrhage Misoprostol (Misoprostol 200 Mcg Tab) 200 mcg PO ONETIME PRN PRN Reason: Post Hemorrhage Misoprostol (Misoprostol 25 Mcg (1/4 Of 100 Mcg) Tab) 25 mcg VAG ONETIME PRN PRN Reason: Cervical Ripening Misoprostol (Misoprostol 25 Mcg (1/4 Of 100 Mcg) Tab) 25 mcg VAG Q4H PRN PRN Reason: Cervical Ripening Last Admin: 10/13/20 00:40 Dose: 25 mcg Documented by: Nalbuphine HCl (Nalbuphine 10 Mg/1 Ml Vial) 10 mg IVPUSH Q1H PRN PRN Reason: Pain (severe 7-10) Ondansetron HCl (Ondansetron 4 Mg/2 Ml Sdv) 4 mg IVPUSH Q6H PRN PRN Reason: Nausea/Vomiting Last Admin: 10/13/20 01:58 Dose: 4 mg Documented by: Oxycodone HCl (Oxycodone 5 Mg Tab) 5 mg PO Q2H PRN PRN Reason: Pain Phenylephrine HCl (Phenylephrine/Normal Saline 100 Mcg/Ml 10 Ml Syringe) 0.1 mg IVPUSH Q5M PRN PRN Reason: Hypotension Sodium Chloride (Sodium Chloride 0.9% 10 Ml Syringe) 10 ml FLUSH ASDIRECTED PRN PRN Reason: Keep Vein Open Sodium Chloride (Sodium Chloride 0.9% 2.5 Ml Syringe) 2.5 ml FLUSH ASDIRECTED PRN PRN Reason: Keep Vein Open Sodium Chloride (Sodium Chloride 0.9% 10 Ml Sdv) 10 ml IV ASDIRECTED PRN PRN Reason: IV Use Sterile Water (Water For Irrigation,Sterile 1,000 Ml Container) 1,000 ml IRR ASDIRECTED PRN PRN Reason: delivery Terbutaline Sulfate (Terbutaline 1 Mg/Ml Sdv) 0.25 mg SUBCUT ASDIRECTED PRN PRN Reason: Tacysystole [place] ([place] Medicated Pads 40/Jar) 1 pad TOP ASDIRECTED PRN PRN Reason: comfort care Last Admin: 10/13/20 17:55 Dose: 1 container Documented by: Discontinued Medications Citric Acid/Sodium Citrate (Citric Acid/Sodium Citrate Solution 30 Ml Cup) 30 ml PO ONETIME ONE Stop: 10/13/20 09:47 Last Admin: 10/13/20 11:30 Dose: 30 ml Documented by: Fentanyl (Fentanyl 100 Mcg/2 Ml Sdv) Confirm Administered Dose 100 mcg .ROUTE .STK-MED ONE Stop: 10/13/20 05:10 Last Admin: 10/14/20 19:06 Dose: Not Given Documented by: Oxytocin/Sodium Chloride (Oxytocin 30 Unit/500 Ml-Ns) Confirm Administered Dose 30 unit in 500 mls @ as directed .ROUTE .STK-MED ONE Stop: 10/12/20 23:53 Last Admin: 10/15/20 07:26 Dose: Not Given Documented by: Ropivacaine (Naropin 0.2%) Confirm Administered Dose 100 mls @ as directed .ROUTE .STK-MED ONE Stop: 10/13/20 05:10 Last Admin: 10/14/20 19:06 Dose: Not Given Documented by: Ropivacaine (Naropin 0.2%) Confirm Administered Dose 100 mls @ as directed .ROUTE .STK-MED ONE Stop: 10/13/20 13:02 Last Admin: 10/14/20 19:06 Dose: Not Given Documented by: Omeprazole (Omeprazole 20 Mg Cap.Cr) 40 mg PO ONETIME ONE Stop: 10/13/20 00:16 Last Admin: 10/13/20 00:38 Dose: 40 mg Documented by: - Interaction Disposition, : in Room with Family Infant Feeding: Attempted ; Nursed Fair/Poor Support Person: - Recovery Exam Fundal Tone: Firm Fundal Level: At Umbilicus Fundal Placement: Midline Lochia Amount: Scant Lochia Color: Rubra/Red Perineum Description: Other (see below) Other Perinuem Description: 2nd degree repaired laceration Episiotomy/Laceration: Approximated Urinary Elimination: Voided - Exam General: Alert, Oriented Lungs: Normal Respiratory Effort Cardiovascular: Regular Rate, Regular Rhythm GI/Abdominal Exam: Normal Bowel Sounds, Soft Extremities: Pedal Edema (trace). No: Osbaldo's Sign Skin: Warm, Dry, Intact Neurological: No New Focal Deficit Psy/Mental Status: Alert, Normal Affect, Normal Mood - Problem List & Annotations (1) Vaginal delivery SNOMED Code(s): 206273196 Code(s): O80 - ENCOUNTER FOR FULL-TERM UNCOMPLICATED DELIVERY Status: Acute Current Visit: Yes - Problem List Review Problem List Initiated/Reviewed/Updated: Yes - My Orders Last 24 Hours: My Active Orders 10/15/20 10:09 Ready for Discharge [RC] PER UNIT ROUTINE - Assessment Assessment:: PPD#2 after , - Plan Plan:: VS are stable. Discharge to home today. Discharge instructions reviewed. Follow up at [facility] 4 weeks
== END 2020-10-15 16:20 | disposition home or self-care (01) | DRG 560 ==
LOC: MW.OBCHECK 16:07 → MW.OB 16:09 → MW.OBCHECK 19:22 → MW.OB 19:23 → OBSVTOIN 10-13 16:07 → MW.OB 10-13 20:27
PROVIDERS: ADMIT Obstetrics & Gynecology; ATTEND Obstetrics & Gynecology
PROC: 10E0XZZ Delivery of Products of Conception, External Approach (ICD-10-PCS; principal; 2020-10-13)
PROC: 3E0P7VZ Introduction of Hormone into Female Reproductive, Via Natural or Artificial Opening (ICD-10-PCS; 2020-10-13)
PROC: 4A1HXCZ Monitoring of Products of Conception, Cardiac Rate, External Approach (ICD-10-PCS; 2020-10-13)
PROC: 10H07YZ Insertion of Other Device into Products of Conception, Via Natural or Artificial Opening (ICD-10-PCS; 2020-10-13)
PROC: 0KQM0ZZ Repair Perineum Muscle, Open Approach (ICD-10-PCS; 2020-10-13)
PROC: 3E0R3BZ Introduction of Anesthetic Agent into Spinal Canal, Percutaneous Approach (ICD-10-PCS; 2020-10-13)
DX: O14.04 Mild to moderate pre-eclampsia, complicating childbirth (principal); Z3A.39 39 weeks gestation of pregnancy; Z37.0 Single live birth; O77.0 Labor and delivery complicated by meconium in amniotic fluid; O70.1 Second degree perineal laceration during delivery; O69.1XX0 Labor and delivery complicated by cord around neck, with compression, not applicable or unspecified; Z20.822 Contact with and (suspected) exposure to COVID-19
CPT/HCPCS: 01967; 36415; 51702; 59025; 59409; 85014; 85018; 85027; 86592; 86850; 86900; 86901; A9270-GY; J2405; J2590; J2795; J3010; J7120; U0002